=== PATIENT | female | born 1980 | race Caucasian/White ===

== ENCOUNTER → 2019-07-16 10:31 | Outpatient (BNVA) | payer BC, SELFPAY | PROVIDERS: Visit Provider Obstetrics & Gynecology | DX: N92.0 Excessive and frequent menstruation with regular cycle (principal) | CPT/HCPCS: 84443; 85027 ==

== ENCOUNTER 2020-07-29 10:49 | Emergency (ER) | payer SELFPAY ==
[2020-07-29 10:56] VITALS: BP 124/81; PULSE 74; RESP 16; TEMP 36.3; O2SAT 100; BMI 30.8
[2020-07-29 12:34] VITALS: BP 125/76; PULSE 64; RESP 16; O2SAT 97
--- NOTE | 2020-07-29 12:39 | XR_ITS ---
WS: [id number] XR chest 1V portable [id number] REASON FOR EXAM: CP FINDINGS: The heart and mediastinum are within normal limits. No active pulmonary parenchymal pleural disease. Bony thorax is intact. XR/XR chest 1V portable [id number] IMPRESSION: No acute chest abnormality.
--- NOTE | 2020-07-29 12:39 | ECG_ITS ---
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 Measurements Intervals [place] Rate: 60 P: 49 MT: 128 QRS: 50 QRSD: 88 T: 30 QT: 397 QTc: 399 Interpretive Statements SINUS RHYTHM No previous ECG available for comparison Electronically Signed On 07-29-2020 23:15:01 CDT by Torri Alexander M.D. [id number]
--- NOTE | 2020-07-29 12:40 | W.ED.CHESTPA ---
HPI - Chest Pain General: Chief Complaint: Chest Pain Stated Complaint: CP X 2 WKS, WORSE TODAY Time Seen by Provider: 07/29/20 12:36 History of Present Illness: HPI narrative: Patient complains about upper pain radiating right shoulder intermittently over the last 2 weeks. She said it started after he stopped her Lexapro. She did go back on her Lexapro couple days ago. Patient says she is a constant worrier has been her whole life. She denies any chest heaviness chest pressure denies any shortness of breath nausea vomiting diaphoresis. Does have some reflux at times. Has not taking agaa-zjr-sssazed medications. Besides ibuprofen. States that pain or discomfort seems to occur more with a deep breath. MD complaint: chest discomfort Timing of current episode: episodic Prior episodes: No Pain location: right chest Pain radiation: right shoulder Severity: mild Quality: sharp Exacerbating factors: inspiration and stress Associated symptoms: Reports no associated symptoms; Deny abdominal pain, dyspnea, fever(s), nausea or vomiting Review of Systems Const: Denies: fever(s), chills or body aches Eyes: Denies: change in vision or blurry vision ENMT: Denies: throat pain or nasal congestion Card: Reports: chest pain; Denies: dyspnea on exertion Resp: Denies: dyspnea, productive cough or non-productive cough GI: Denies: abdominal pain, nausea or vomiting Musc: Denies: extremity pain Skin/Breast: Denies: rash Neuro: Denies: headache(s) Psych: Denies: anxiety or depression Jose/Lymph: Denies: easy bruising PFS ED PFSH: Medical History (Updated 07/29/20 @ 14:47 by NATALIE Villatoro) Anxiety Surgical History History of kidney surgery (10/13/14) Laparoscopic (robotic) right kidney surgery. Performed at [facility] in [place]. Reports having possible ureteral obstruction and states had lower part of kidney and obstructed ureter removed and ureter reimplanted. Reports had stent for 3 weeks. History of tympanoplasty (~1983) Family History Family/Other Breast cancer Maternal aunt Hypertension paternal aunt and uncle Hyperlipidemia Multiple family members Grandmother , from ovarian cancer Breast cancer, Onset Age: 60 maternal Ovarian cancer maternal Mother , age 34 from breast cancer Breast cancer, Onset Age: 29 Hypertension Father Diabetes Hypertension Brother Hypertension Grandfather CAD (coronary artery disease) Paternal Social History (Updated 07/29/20 @ 11:16 by Elmer Belle RN) Smoking and tobacco status: current every day smoker cigarettes Packs smoked per day: 0.5 [ Other cigarette details: started about age 35 ] Alcohol intake: current Alcohol intake frequency: few times a week Physical Exam Const: COMMON NORMALS: no acute distress, average body habitus and patient oriented x3 HENMT: COMMON NORMALS: normocephalic HEAD & SCALP: normal to inspection and normocephalic FACE & SINUS: normal facial exam Eye: COMMON NORMALS: conjunctivae normal GENERAL EYE: appearance normal, both eyes and all related structures CONJUNCTIVA: Yes conjunctivae normal Neck/C-Spine: COMMON NORMALS: no JVD Chest: COMMONS NORMALS: normal inspection of the chest Resp: COMMON NORMALS: normal respiratory effort and clear to auscultation bilaterally AUSCULTATION: clear to auscultation bilaterally Cardio: COMMON NORMALS: no JVD, regular rate and regular rhythm RATE: regular rate RHYTHM: regular rhythm GI: COMMON NORMALS: Normal to inspection, nondistended, normoactive bowel sounds present Extremity: COMMON NORMALS: normal to inspection and full ROM Neuro: COMMON NORMALS: patient oriented x3 Course Vital Signs: Vital signs: Vital Signs Temperature 97.3 F L 07/29/20 10:56 Pulse Rate 76 07/29/20 14:49 Respiratory Rate 16 07/29/20 14:49 Blood Pressure 117/78 07/29/20 14:49 Pulse Oximetry 97 07/29/20 14:49 MDM - Chest Pain MDM Narrative: Medical decision making narrative: Patient felt better after injection. Labs all negative. EKG x-ray normal. Atypical chest pain patient follow-up family medical provider as necessary and will continue take Lexapro and talk to her provider about whether change letter started a new medication. Lab Data: Labs: Lab Results 07/29/20 07/29/20 07/29/20 Range/Units 12:50 12:50 12:50 WBC 7.3 (4.0-10.0) 10^3/ uL RBC 3.95 L (4.1-5.3) 10^6/u L Hgb 11.9 (11.5-15.3) g/dL Hct 37.1 (37.0-47.0) % MCV 93.9 (81-99) fL MCH 30.1 (28.0-34.0) pg MCHC 32.1 (30.0-36.0) g/dL RDW 14.4 (12.1-15.1) % Plt Count 297 (130-400) 10^3/c mm MPV 10.0 (7.4-10.4) fL Neut % (Auto) 68.6 % Lymph % (Auto) 19.5 % [place] % (Auto) 9.4 % Eos % (Auto) 1.8 % Baso % (Auto) 0.4 % Neut # (Auto) 4.99 (1.8-7.7) 10^3/u L Lymph # (Auto) 1.4 (0.8-4.8) 10^3/u L [place] # (Auto) 0.7 (0.2-0.9) 10^3/u L Eos # (Auto) 0.1 (0.0-0.8) 10^3/u L Baso # (Auto) 0.0 (0.0-0.1) 10^3/u L Nucleated RBC % (a uto) 0 % Nucleated RBCs # 0.0 /100WBC ESR 15 (0-15) mm/hr D-Dimer (0-0.59) ug/mIFE U Sodium 137 (136-145) mmol/L Potassium 3.9 (3.5-5.1) mmol/L Chloride 105 (98-107) mmol/L Carbon Dioxide 23 (22-29) mmol/L Anion Gap 12.9 (5-19) BUN 13 (6-20) mg/dL Creatinine 0.6 (0.5-0.9) mg/dL GFR Calculation 110.2 (90-130) mL/min Glucose 89 (65-115) mg/dL Calculated Osmolal ity 284 L (285-295) mOsm/k g Calcium 8.5 (8.5-10.5) mg/dL Total Bilirubin 0.2 (0.15-1.2) mg/dL AST 38 H (0-32) U/L ALT 41 H (0-33) U/L Alkaline Phosphata se 93 (35-105) IU/L Troponin T Gen 5 n g/L (0-10) ng/L Total Protein 7.0 (6.6-8.7) g/dL Albumin 3.9 (3.5-5.2) g/dL Globulin 3.1 (1.3-4.6) g/dL 07/29/20 07/29/20 Range/Units 12:50 14:20 WBC (4.0-10.0) 10^3/ uL RBC (4.1-5.3) 10^6/u L Hgb (11.5-15.3) g/dL Hct (37.0-47.0) % MCV (81-99) fL MCH (28.0-34.0) pg MCHC (30.0-36.0) g/dL RDW (12.1-15.1) % Plt Count (130-400) 10^3/c mm MPV (7.4-10.4) fL Neut % (Auto) % Lymph % (Auto) % [place] % (Auto) % Eos % (Auto) % Baso % (Auto) % Neut # (Auto) (1.8-7.7) 10^3/u L Lymph # (Auto) (0.8-4.8) 10^3/u L [place] # (Auto) (0.2-0.9) 10^3/u L Eos # (Auto) (0.0-0.8) 10^3/u L Baso # (Auto) (0.0-0.1) 10^3/u L Nucleated RBC % (a uto) % Nucleated RBCs # /100WBC ESR (0-15) mm/hr D-Dimer <= 0.27 (0-0.59) ug/mIFE U Sodium (136-145) mmol/L Potassium (3.5-5.1) mmol/L Chloride (98-107) mmol/L Carbon Dioxide (22-29) mmol/L Anion Gap (5-19) BUN (6-20) mg/dL Creatinine (0.5-0.9) mg/dL GFR Calculation (90-130) mL/min Glucose (65-115) mg/dL Calculated Osmolal ity (285-295) mOsm/k g Calcium (8.5-10.5) mg/dL Total Bilirubin (0.15-1.2) mg/dL AST (0-32) U/L ALT (0-33) U/L Alkaline Phosphata se (35-105) IU/L Troponin T Gen 5 n g/L 6 (0-10) ng/L Total Protein (6.6-8.7) g/dL Albumin (3.5-5.2) g/dL Globulin (1.3-4.6) g/dL Discharge Plan Discharge Patient Disposition: Home Clinical Impression: Atypical chest pain Condition: Stable Prescriptions: No Action escitalopram oxalate 10 mg tablet 10 mg PO DAILY RF: 0 Discharge Orders: Discharge ED (Routine); Ordered 07/29/20 Ordered By: Beni Ovalles Referrals: Princess Cerda FNP [Primary Care Provider] - Discharge Diet: Usual diet Discharge Activity: Resume usual activity Activity Restrictions/Additional Instructions: Continue on present medications follow-up your family medical provider if no significant improvement can return to ER if needed. Coding Level of Care Code ED Asset Protection Manager for Yadielg Fwd Exam Comprehensive
[2020-07-29 12:55] LABS: Basophils % 0.4 %; Eosinophils # 0.1 10^3/uL (0.0-0.8); Eosinophils % 1.8 %; Hematocrit 37.1 % (37.0-47.0); Hemoglobin 11.9 g/dL (11.5-15.3); Lymphocytes # 1.4 10^3/uL (0.8-4.8); Lymphocytes % 19.5 %; Mean Corpuscular HGB Conc 32.1 g/dL (30.0-36.0); Mean Corpuscular Hemoglobin 30.1 pg (28.0-34.0); Mean Corpuscular Volume 93.9 fL (81-99); Monocytes # 0.7 10^3/uL (0.2-0.9); Monocytes % 9.4 %; Neutrophils # 4.99 10^3/uL (1.8-7.7); Neutrophils % 68.6 %; Nucleated Red Blood Cells % 0 %; Platelet Count 297 10^3/cmm (130-400); Red Blood Count 3.95 10^6/uL (4.1-5.3); Red Cell Distribution Width 14.4 % (12.1-15.1); White Blood Count 7.3 10^3/uL (4.0-10.0)
[2020-07-29 13:17] LABS: Alanine Aminotransferase 41 U/L (0-33); Albumin Level 3.9 g/dL (3.5-5.2); Alkaline Phosphatase 93 IU/L (35-105); Anion Gap 12.9 (5-19); Aspartate Amino Transferase 38 U/L (0-32); Blood Urea Nitrogen 13 mg/dL (6-20); Calcium 8.5 mg/dL (8.5-10.5); Carbon Dioxide 23 mmol/L (22-29); Chloride 105 mmol/L (98-107); Globulin 3.1 g/dL (1.3-4.6); Glomerular Filtration Rate 110.2 mL/min (90-130); Glucose 89 mg/dL (65-115); Osmolality Calculated 284 mOsm/kg (285-295); Potassium 3.9 mmol/L (3.5-5.1); Sodium 137 mmol/L (136-145); Total Bilirubin 0.2 mg/dL (0.15-1.2)
[2020-07-29 13:38] LABS: Erythrocyte Sedimentation Rate 15 mm/hr (0-15)
[2020-07-29] MEDS: ketorolac 60 mg/2 mL INJ IM (13:50)
[2020-07-29 14:07] LABS: Troponin T (5th) Once 6 ng/L (0-10)
[2020-07-29 14:40] LABS: D Dimer <= 0.27 ug/mIFEU (0-0.59)
[2020-07-29 14:49] VITALS: BP 117/78; PULSE 76; RESP 16; O2SAT 97
== END 2020-07-29 14:54 | disposition home or self-care (01) ==
PROVIDERS: Emergency Provider Nurse Practitioner Family; PCP Nurse Practitioner Family
DX: R07.89 Other chest pain (principal); F17.210 Nicotine dependence, cigarettes, uncomplicated
CPT/HCPCS: 71045; 80053; 84484; 85025; 85378; 85651; 93005; 96372; 99283; J1885

== ENCOUNTER 2021-04-07 10:38 | Emergency (ER) | payer SELFPAY ==
[2021-04-07 10:51] VITALS: BP 115/76; PULSE 85; RESP 16; TEMP 36.9; O2SAT 97; BMI 28.7
--- NOTE | 2021-04-07 11:04 | XR_ITS ---
WS: [id number] PORTABLE CHEST HISTORY: dyspnea/cough COMPARISON: 07/29/2020 Lungs are clear and well expanded. No pleural effusion or pneumothorax. Cardiac size: Normal. Mediastinum/Aorta: Normal mediastinum. No osseous abnormality seen. XR/XR chest 1V portable [id number] IMPRESSION: Unremarkable portable chest.
--- NOTE | 2021-04-07 11:09 | W.ED.CHESTPA ---
HPI - Chest Pain General: Chief Complaint: Chest Pain Stated Complaint: SOB, CP, FATIGUE Time Seen by Provider: 04/07/21 10:43 History of Present Illness: HPI narrative: 41-year-old female presents emergency room with complaint of shortness of breath and cough. Chest heaviness at times. She test positive for Covid on 1123. She did symptoms for several days prior to that. Patient is not obese she has no known history of chronic respiratory illness no immune compromising diagnosis. MD complaint: chest heaviness Onset (ago): day(s) (2) Timing of current episode: episodic Onset: during exertion Severity: mild Quality: heaviness Relieving factors: rest Exacerbating factors: exertion Associated symptoms: Reports dyspnea; Deny abdominal pain, diaphoresis, fever(s), leg edema, nausea, palpitations, sense of impending doom, syncope or vomiting Treatment prior to arrival: none Review of Systems Const: Denies: fever(s) or diaphoresis ENMT: Denies: throat pain, ear or mastoid pain, nasal discharge or nasal congestion Card: Denies: palpitations or syncope Resp: Reports: dyspnea and non-productive cough GI: Denies: abdominal pain, nausea or vomiting : Denies: flank pain, difficulty voiding, dysuria, urinary frequency or urinary urgency Skin/Breast: Denies: rash or pruritus PFSH ED PFSH: Medical History (Updated 04/07/21 @ 12:09 by Victoriano Aguilar DO) Anxiety Surgical History History of kidney surgery (10/13/14) Laparoscopic (robotic) right kidney surgery. Performed at [facility] in [place]. Reports having possible ureteral obstruction and states had lower part of kidney and obstructed ureter removed and ureter reimplanted. Reports had stent for 3 weeks. History of tympanoplasty (~1983) Family History Family/Other Breast cancer Maternal aunt Hypertension paternal aunt and uncle Hyperlipidemia Multiple family members Grandmother , from ovarian cancer Breast cancer, Onset Age: 60 maternal Ovarian cancer maternal Mother , age 34 from breast cancer Breast cancer, Onset Age: 29 Hypertension Father Diabetes Hypertension Brother Hypertension Grandfather CAD (coronary artery disease) Paternal Social History Smoking and tobacco status: current every day smoker cigarettes Packs smoked per day: 0.5 [ Other cigarette details: started about age 35 ] Alcohol intake: current Alcohol intake frequency: few times a week Female Reproductive History: Date of last menstrual period: 03/06/21 Physical Exam Const: COMMON NORMALS: no acute distress GENERAL APPEARANCE: cooperative and comfortable ORIENTATION/CONSCIOUSNESS: Yes awake, Yes oriented to person, Yes oriented to place and Yes oriented to time HENMT: COMMON NORMALS: normocephalic, atraumatic and hearing grossly normal bilaterally HEAD & SCALP: normocephalic and atraumatic Neck/C-Spine: COMMON NORMALS: no JVD Lymph: LYMPHATIC: no lymphadenopathy noted and no lymphedema noted Resp: COMMON NORMALS: normal respiratory effort, No retractions, No use of accessory muscles and clear to auscultation bilaterally AUSCULTATION: clear to auscultation bilaterally Cardio: COMMON NORMALS: no JVD, regular rate, regular rhythm and No murmurs present (Cardio) RATE: regular rate RHYTHM: regular rhythm GI: COMMON NORMALS: Soft to palpation and No hepatosplenomegaly present AUSCULTATION: Yes normoactive bowel sounds PALPATION: Yes Soft to palpation, No Tenderness to palpation present (GI), No Guarding due to palpation present (GI) and Yes No hepatosplenomegaly present Extremity: COMMON NORMALS: normal to inspection, capillary refill normal, no clubbing, cyanosis or edema, no calf tenderness and no pedal edema Neuro: SENSORIUM/ORIENTATION: Yes oriented to person, Yes oriented to place and Yes oriented to time Skin: COMMON NORMALS: no rashes or lesions noted GENERAL SKIN EXAM: no rashes or lesions noted Course Vital Signs: Vital signs: Vital Signs Temperature 98.4 F 04/07/21 10:51 Pulse Rate 71 04/07/21 11:20 Respiratory Rate 16 04/07/21 11:20 Blood Pressure 112/79 04/07/21 11:20 Pulse Oximetry 97 04/07/21 11:20 MDM - Chest Pain MDM Narrative: Medical decision making narrative: Patient is indeed Covid positive but does not really meet requirements monoclonal antibodies at this time she is otherwise doing very well. She is well oxygenated her chest x-ray is good vital signs are all good. No further interventions at this point observe we will send her home with home O2 monitoring if has worsening return to the emergency room. Lab Data: Labs: Lab Results 04/07/21 04/07/21 11:18 11:18 WBC 3.8 10^3/uL L 10^ 3/uL (4.0-10.0) RBC 4.20 10^6/uL 10^6 /uL (4.1-5.3) Hgb 11.4 g/dL L g/dL (11.5-15.3) Hct 37.1 % % (37.0-47.0) MCV 88.3 fl fl (81-99) MCH 27.1 pg L pg (28.0-34.0) MCHC 30.7 g/dL g/dL (30.0-36.0) RDW 15.2 % H % (12.1-15.1) Plt Count 237 10^3/cmm 10^3 /cmm (130-400) MPV 10.6 fL H fL (7.4-10.4) Neut % (Auto) 58.6 % % Lymph % (Auto) 28.4 % % [place] % (Auto) 10.9 % % Eos % (Auto) 1.3 % % Baso % (Auto) 0.5 % % Neut # (Auto) 2.21 10^3/uL 10^3 /uL (1.8-7.7) Lymph # (Auto) 1.1 10^3/uL 10^3/ uL (0.8-4.8) [place] # (Auto) 0.4 10^3/uL 10^3/ uL (0.2-0.9) Eos # (Auto) 0.1 10^3/uL 10^3/ uL (0.0-0.8) Baso # (Auto) 0.0 10^3/uL 10^3/ uL (0.0-0.1) Nucleated RBC % (a uto) 0 % % Nucleated RBCs # 0.0 /100WBC /100W BC Sodium 136 mmol/L mmol/L (136-145) Potassium 4.1 mmol/L mmol/L (3.5-5.1) Chloride 105 mmol/L mmol/L (98-107) Carbon Dioxide 20 mmol/L L mmol/ L (22-29) Anion Gap 15.1 (5-19) BUN 16 mg/dL mg/dL (6-20) Creatinine 1.1 mg/dL H mg/dL (0.5-0.9) GFR Calculation 54.5 mL/min L mL/ min (90-130) Glucose 84 mg/dL mg/dL (65-115) Calculated Osmolal ity 282 mOsm/kg L mOs m/kg (285-295) Calcium 8.1 mg/dL L mg/dL (8.5-10.5) Total Bilirubin 0.2 mg/dL mg/dL (0.15-1.2) AST 46 U/L H U/L (0-32) ALT 78 U/L H U/L (0-33) Alkaline Phosphata se 59 IU/L IU/L (35-105) C-Reactive Protein 0.9 mg/L mg/L (0.0-4.9) Total Protein 6.6 g/dL g/dL (6.6-8.7) Albumin 3.8 g/dL g/dL (3.5-5.2) Globulin 2.8 g/dL g/dL (1.3-4.6) Discharge Plan Discharge Patient Disposition: Home Clinical Impression: COVID-19 Condition: Stable Prescriptions: No Action escitalopram oxalate 10 mg tablet 10 mg PO DAILY RF: 0 Discharge Orders: Discharge ED (Routine); Ordered 04/07/21 Ordered By: Victoriano Aguilar Referrals: Prashant,NATALIE Sánchez [Primary Care Provider] - Discharge Diet: Usual diet Discharge Activity: Increase activity as tolerated Patient Instructions: Opioid Safety Activity Restrictions/Additional Instructions: Monitor oxygen saturations at home. If you are less than 90% at rest return to the emergency room. Coding Level of Care Code ED Screen Vent Binder for Sarai Fwd Exam Comprehensive
[2021-04-07 11:20] VITALS: BP 112/79; PULSE 71; RESP 16; O2SAT 97
[2021-04-07 11:30] LABS: Basophils % 0.5 %; Eosinophils # 0.1 10^3/uL (0.0-0.8); Eosinophils % 1.3 %; Hematocrit 37.1 % (37.0-47.0); Hemoglobin 11.4 g/dL (11.5-15.3); Lymphocytes # 1.1 10^3/uL (0.8-4.8); Lymphocytes % 28.4 %; Mean Corpuscular HGB Conc 30.7 g/dL (30.0-36.0); Mean Corpuscular Hemoglobin 27.1 pg (28.0-34.0); Mean Corpuscular Volume 88.3 fl (81-99); Mean Platelet Volume 10.6 fL (7.4-10.4); Monocytes # 0.4 10^3/uL (0.2-0.9); Monocytes % 10.9 %; Neutrophils # 2.21 10^3/uL (1.8-7.7); Neutrophils % 58.6 %; Nucleated Red Blood Cells % 0 %; Platelet Count 237 10^3/cmm (130-400); Red Cell Distribution Width 15.2 % (12.1-15.1); White Blood Count 3.8 10^3/uL (4.0-10.0)
[2021-04-07 12:02] LABS: Alanine Aminotransferase 78 U/L (0-33); Albumin Level 3.8 g/dL (3.5-5.2); Alkaline Phosphatase 59 IU/L (35-105); Anion Gap 15.1 (5-19); Aspartate Amino Transferase 46 U/L (0-32); Blood Urea Nitrogen 16 mg/dL (6-20); C Reactive Protein 0.9 mg/L (0.0-4.9); Calcium 8.1 mg/dL (8.5-10.5); Carbon Dioxide 20 mmol/L (22-29); Chloride 105 mmol/L (98-107); Globulin 2.8 g/dL (1.3-4.6); Glomerular Filtration Rate 54.5 mL/min (90-130); Glucose 84 mg/dL (65-115); Osmolality Calculated 282 mOsm/kg (285-295); Potassium 4.1 mmol/L (3.5-5.1); Sodium 136 mmol/L (136-145); Total Bilirubin 0.2 mg/dL (0.15-1.2); Total Protein 6.6 g/dL (6.6-8.7)
[2021-04-07 13:31] VITALS: O2SAT 99
--- NOTE | 2021-04-07 15:15 | ECG_ITS ---
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
== END 2021-04-07 13:31 | disposition home or self-care (01) ==
PROVIDERS: Emergency Provider Family Medicine; PCP Nurse Practitioner Family
DX: U07.1 COVID-19 (principal); F17.210 Nicotine dependence, cigarettes, uncomplicated
CPT/HCPCS: 71045; 80053; 85025; 86140; 93005; 99283

== ENCOUNTER 2021-05-09 08:10 | Emergency (ER) | payer SELFPAY ==
[2021-05-09 08:18] VITALS: BP 110/70; PULSE 84; RESP 15; TEMP 36.9; O2SAT 97; BMI 27.9
--- NOTE | 2021-05-09 08:47 | XR_ITS ---
WS: [id number] Portable AP upright chest, 05/09/2021 Clinical Data: dyspnea/cough Comparison: Portable chest, 04/07/2021. Findings: No nodules, masses or effusions are seen. The heart is normal. The pulmonary vascularity is not increased. No pneumonia or pneumothorax is seen. XR/XR chest 1V portable [id number] Impression: Negative chest.
--- NOTE | 2021-05-09 08:51 | ED_ITS ---
HPI - SOB/Dyspnea General: Chief Complaint: Shortness of Breath/Dyspnea Stated Complaint: FATIGUE, SOB Time Seen by Provider: 05/09/21 08:25 History of Present Illness: HPI Narrative: 41-year-old female presents emergency room with chief complaint of shortness of breath sore throat sinus drainage some congestion. States she has had this for last several days been progressively worsening. She has history of having had COVID approximately a month ago MD elicited complaint: shortness of breath and cough Onset (ago): hour(s) Timing: constant Exacerbating factors: coughing Relieving factors: nothing Associated symptoms: Deny abdominal pain, chest congestion, chest pain, cough, diaphoresis, dizziness, extremity pain, fever(s), hemoptysis, lightheadedness, myalgias, nausea, orthopnea, palpitations, paresthesias, polydipsia, polyuria, rash, sense of impending doom, syncope or vomiting Treatment prior to arrival: none Review of Systems Const: Denies: fever(s) or diaphoresis ENMT: Denies: throat pain, ear or mastoid pain, nasal discharge or nasal congestion Card: Denies: chest pain, palpitations, lightheadedness, syncope or orthopnea Resp: Denies: hemoptysis or chest congestion GI: Denies: abdominal pain, nausea or vomiting : Denies: flank pain, difficulty voiding, dysuria, urinary frequency or urinary urgency Musc: Denies: extremity pain Skin/Breast: Denies: rash or pruritus Neuro: Denies: dizziness Endo: Denies: polyuria or polydipsia PFS ED PFSH: Medical History (Updated 05/09/21 @ 09:33 by Victoriano Aguilar DO) Anxiety Surgical History History of kidney surgery (10/13/14) Laparoscopic (robotic) right kidney surgery. Performed at [facility] in [place]. Reports having possible ureteral obstruction and states had lower part of kidney and obstructed ureter removed and ureter reimplanted. Reports had stent for 3 weeks. History of tympanoplasty (~1983) Family History Family/Other Breast cancer Maternal aunt Hypertension paternal aunt and uncle Hyperlipidemia Multiple family members Grandmother , from ovarian cancer Breast cancer, Onset Age: 60 maternal Ovarian cancer maternal Mother , age 34 from breast cancer Breast cancer, Onset Age: 29 Hypertension Father Diabetes Hypertension Brother Hypertension Grandfather CAD (coronary artery disease) Paternal Social History Smoking and tobacco status: current every day smoker cigarettes Packs smoked per day: 0.5 [ Other cigarette details: started about age 35 ] Alcohol intake: current Alcohol intake frequency: few times a week Female Reproductive History: Date of last menstrual period: 03/06/21 Physical Exam Const: COMMON NORMALS: no acute distress GENERAL APPEARANCE: cooperative and comfortable ORIENTATION/CONSCIOUSNESS: Yes awake, Yes oriented to person, Yes oriented to place and Yes oriented to time HENMT: COMMON NORMALS: normocephalic, atraumatic and hearing grossly normal bilaterally HEAD & SCALP: normocephalic and atraumatic Neck/C-Spine: COMMON NORMALS: no JVD Resp: COMMON NORMALS: normal respiratory effort, No retractions, No use of accessory muscles and clear to auscultation bilaterally AUSCULTATION: clear to auscultation bilaterally Cardio: COMMON NORMALS: no JVD, regular rate, regular rhythm and No murmurs present (Cardio) RATE: regular rate RHYTHM: regular rhythm GI: COMMON NORMALS: Soft to palpation and No hepatosplenomegaly present AUSCULTATION: Yes normoactive bowel sounds PALPATION: Yes Soft to palpation, No Tenderness to palpation present (GI), No Guarding due to palpation present (GI) and Yes No hepatosplenomegaly present Extremity: COMMON NORMALS: normal to inspection, capillary refill normal, no clubbing, cyanosis or edema, no calf tenderness and no pedal edema Neuro: SENSORIUM/ORIENTATION: Yes oriented to person, Yes oriented to place and Yes oriented to time Skin: COMMON NORMALS: no rashes or lesions noted GENERAL SKIN EXAM: no rashes or lesions noted Course Vital Signs: Vital signs: Vital Signs Temperature 98.5 F 05/09/21 08:18 Pulse Rate 84 05/09/21 08:18 Respiratory Rate 15 05/09/21 08:18 Blood Pressure 110/70 05/09/21 08:18 Pulse Oximetry 97 05/09/21 08:18 MDM - SOB/Dyspnea MDM Narrative: Medical decision making narrative: Chest x-ray unremarkable. No clinical signs or symptoms of a pulmonary emboli at this time observe if has any worsening or change symptoms return to primary care return to the emergency room. If her symptoms persist she may need to see her primary care and consider treatment for postinfectious bronchospasm for a number of months. Discharge Plan Discharge Patient Disposition: Home Clinical Impression: Post-COVID chronic cough Condition: Stable Prescriptions: No Action escitalopram oxalate 10 mg tablet 10 mg PO DAILY RF: 0 Discharge Orders: Discharge ED (Routine); Ordered 05/09/21 Ordered By: Victoriano Aguilar Referrals: Princess Cerda FNP [Primary Care Provider] - Discharge Diet: Usual diet Discharge Activity: Resume usual activity Patient Instructions: Opioid Safety Activity Restrictions/Additional Instructions: Symptoms persist follow-up with primary care provider return to the emergency room. Coding Level of Care Code ED Braille Typist for Sarai Holbrook Exam Comprehensive
== END 2021-05-09 09:47 | disposition home or self-care (01) ==
PROVIDERS: Emergency Provider Family Medicine; PCP Nurse Practitioner Family
DX: R05.3 Chronic cough (principal); U09.9 Post COVID-19 condition, unspecified; F17.210 Nicotine dependence, cigarettes, uncomplicated
CPT/HCPCS: 71045; 99282

== ENCOUNTER 2021-11-30 10:25 | Emergency (ER) | payer SELFPAY ==
[2021-11-30 10:33] VITALS: BP 124/82; PULSE 85; RESP 15; TEMP 36.7; O2SAT 100; BMI 27.3
--- NOTE | 2021-11-30 10:46 | ECG_ITS ---
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 Measurements Intervals [place] Rate: 91 P: 66 HI: 104 QRS: 68 QRSD: 87 T: 43 QT: 343 QTc: 423 Interpretive Statements SINUS RHYTHM WITH SHORT HI INTERVAL Compared to ECG 04/07/2021 10:49:46 No significant changes Electronically Signed On 11-30-2021 21:15:19 CDT by Torri Alexander M.D. [email or web address] medical specialty hospital - boardman, incGenKyoTex/store/OM/[id number]
--- NOTE | 2021-11-30 13:30 | XRR_ITS ---
PROCEDURE INFORMATION: Exam: XR Chest Exam date and time: 11/30/2021 1:47 PM Age: 41 years old Clinical indication: Pain; Shortness of breath; Angina pectoris; Additional info: Chest pain TECHNIQUE: Imaging protocol: Radiologic exam of the chest. Views: 1 view. COMPARISON: CR XR chest 1V portable [id number] 05/09/2021 8:55 AM FINDINGS: Lungs: Unremarkable. No consolidation. Pleural spaces: Unremarkable. No pleural effusion. No pneumothorax. Heart/Mediastinum: Unremarkable. No cardiomegaly. Bones/joints: Unremarkable. No changes seen since prior. Incidentally noted are metallic nipple rings XR/XR chest 1V portable [id number] IMPRESSION: No acute findings.
--- NOTE | 2021-11-30 13:30 | ECG_ITS ---
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 Measurements Intervals [place] Rate: 74 P: 54 SD: 134 QRS: 52 QRSD: 88 T: 36 QT: 348 QTc: 388 Interpretive Statements SINUS RHYTHM Compared to ECG 11/30/2021 10:44:05 Short SD interval no longer present Electronically Signed On 11-30-2021 21:16:49 CDT by Torri Alexander M.D. [email or web address] [email or web address] [email or web address] hospitalLGC [email or web address]/store/[id number]
--- NOTE | 2021-11-30 15:14 | ED_ITS ---
Documented by User: Victoriano Aguilar DO 12/01/21 10:26 HPI - Chest Pain General: Chief Complaint: Chest Pain Stated Complaint: Chest pains, Sob Time Seen by Provider: 11/30/21 15:09 Source: patient Mode of arrival: ambulatory Limitations: no limitations History of Present Illness: 41-year-old female presents emergency room complaining of chest pain that began 30 minutes after she had gone to work. States pain radiating to her left arm she got lightheaded and dizzy with that. She denies any does seem to exacerbate or relieve the pain. She has had a couple episodes similar in the past has not had any further evaluation for it. She had COVID last March and had an episode of atypical chest pain prior to that and then another after that for which she was seen evaluated in the emergency room. No known history of coronary disease she is not diabetic nor does she smoke. MD complaint: chest pain Onset (ago): minute(s) Timing of current episode: episodic Prior episodes: Yes Onset: during rest Pain location: left chest Pain radiation: left arm Severity: mild Quality: aching and heaviness Relieving factors: nothing Exacerbating factors: nothing Associated symptoms: Deny abdominal pain, diaphoresis, dyspnea, fever(s), leg ed kwasi, nausea, palpitations, sense of impending doom, syncope or vomiting Treatment prior to arrival: none Review of Systems Const: Denies: fever(s), chills, fatigue, malaise or diaphoresis ENMT: Denies: throat pain, ear or mastoid pain, nasal discharge or nasal congestion Card: Reports: chest pain; Denies: palpitations, irregular heart rhythm, edema or syncope Resp: Denies: dyspnea or wheezing GI: Denies: abdominal pain, nausea or vomiting : Denies: flank pain, difficulty voiding, dysuria, urinary frequency or urinary urgency Skin/Breast: Denies: rash or pruritus PFS ED PFSH: Medical History (Updated 12/08/21 @ 00:01 by ) Anxiety Surgical History History of kidney surgery (10/13/14) Laparoscopic (robotic) right kidney surgery. Performed at [facility] in [place]. Reports having possible ureteral obstruction and states had lower part of kidney and obstructed ureter removed and ureter reimplanted. Reports had stent for 3 weeks. History of tympanoplasty (~1983) Family History Family/Other Breast cancer Maternal aunt Hypertension paternal aunt and uncle Hyperlipidemia Multiple family members Grandmother , from ovarian cancer Breast cancer, Onset Age: 60 maternal Ovarian cancer maternal Mother , age 34 from breast cancer Breast cancer, Onset Age: 29 Hypertension Father Diabetes Hypertension Brother Hypertension Grandfather CAD (coronary artery disease) Paternal Social History Smoking and tobacco status: current every day smoker cigarettes Packs smoked per day: 0.5 [ Other cigarette details: started about age 35] Alcohol intake: current Alcohol intake frequency: few times a week Female Reproductive History: Date of last menstrual period: 03/06/21 Physical Exam Const: GENERAL APPEARANCE: cooperative and comfortable ORIENTATION/CONSCIOUSNESS: Yes awake, Yes oriented to person, Yes oriented to place and Yes oriented to time HENMT: COMMON NORMALS: normocephalic, atraumatic and hearing grossly normal bilaterally HEAD & SCALP: normocephalic and atraumatic Neck/C-Spine: COMMON NORMALS: no JVD Resp: COMMON NORMALS: normal respiratory effort, No retractions, No use of accessory muscles and clear to auscultation bilaterally AUSCULTATION: clear to auscultation bilaterally Cardio: COMMON NORMALS: no JVD, regular rate, regular rhythm and No murmurs present (Cardio) RATE: regular rate RHYTHM: regular rhythm GI: COMMON NORMALS: Soft to palpation and No hepatosplenomegaly present AUSCULTATION: Yes normoactive bowel sounds PALPATION: Yes Soft to palpation, No Tenderness to palpation present (GI), No Guarding due to palpation present (GI) and Yes No hepatosplenomegaly present Extremity: COMMON NORMALS: normal to inspection, capillary refill normal, no clubbing, cyanosis or edema, no calf tenderness and no pedal edema Neuro: SENSORIUM/ORIENTATION: Yes oriented to person, Yes oriented to place and Yes oriented to time Skin: COMMON NORMALS: no rashes or lesions noted GENERAL SKIN EXAM: no rashes or lesions noted Course Vital Signs: Vital signs: Vital Signs Temperature 98.1 F 11/30/21 10:33 Pulse Rate 81 11/30/21 18:22 Respiratory Rate 23 H 11/30/21 18:22 Blood Pressure 127/82 11/30/21 18:22 Pulse Oximetry 98 11/30/21 18:22 Oxygen Delivery Me thod 11/30/21 18:22 MDM - Chest Pain Medical Decision Making Care signed out to Dr. Pandey at change of shift. See final notes for diagnosis and disposition. Medical Records I reviewed the patient's medical records. Lab Data I reviewed the patient's lab results. : 11/30/21 14:44 11/30/21 14:44 Radiology Impressions Chest X-Ray 11/30/21 13:30 IMPRESSION: No acute findings. Laboratory Results WBC 8.0 10^3/uL (4.0-10.0) 11/30/21 14:44 RBC 4.57 10^6/uL (4.1-5.3) 11/30/21 14:44 Hgb 10.7 g/dL (11.5-15.3) L 11/30/21 14:44 Hct 37.1 % (37.0-47.0) 11/30/21 14:44 MCV 81.2 fl (81-99) 11/30/21 14:44 MCH 23.4 pg (28.0-34.0) L 11/30/21 14:44 MCHC 28.8 g/dL (30.0-36.0) L 11/30/21 14:44 RDW 17.4 % (12.1-15.1) H 11/30/21 14:44 Plt Count 323 10^3/cmm (130-400) 11/30/21 14:44 MPV 10.2 fL (7.4-10.4) 11/30/21 14:44 Neut % (Auto) 72.4 % 11/30/21 14:44 Lymph % (Auto) 18.8 % 11/30/21 14:44 Coleman % (Auto) 7.0 % 11/30/21 14:44 Eos % (Auto) 0.9 % 11/30/21 14:44 Baso % (Auto) 0.7 % 11/30/21 14:44 Neut # (Auto) 5.81 10^3/uL (1.8-7.7) 11/30/21 14:44 Lymph # (Auto) 1.5 10^3/uL (0.8-4.8) 11/30/21 14:44 Coleman # (Auto) 0.6 10^3/uL (0.2-0.9) 11/30/21 14:44 Eos # (Auto) 0.1 10^3/uL (0.0-0.8) 11/30/21 14:44 Baso # (Auto) 0.1 10^3/uL (0.0-0.1) 11/30/21 14:44 Nucleated RBC % (auto) 0 % 11/30/21 14:44 Nucleated RBCs # 0.0 /100WBC 11/30/21 14:44 Sodium 138 mmol/L (136-145) 11/30/21 14:44 Potassium 3.9 mmol/L (3.5-5.1) 11/30/21 14:44 Chloride 103 mmol/L (98-107) 11/30/21 14:44 Carbon Dioxide 23 mmol/L (22-29) 11/30/21 14:44 Anion Gap 15.9 (5-19) 11/30/21 14:44 BUN 15 mg/dL (6-20) 11/30/21 14:44 Creatinine 0.6 mg/dL (0.5-0.9) 11/30/21 14:44 GFR Calculation 109.6 mL/min (90-130) 11/30/21 14:44 Glucose 93 mg/dL (65-115) 11/30/21 14:44 Calculated Osmolality 287 mOsm/kg (285-295) 11/30/21 14:44 Calcium 9.3 mg/dL (8.5-10.5) 11/30/21 14:44 Troponin T Baseline 6 ng/L (0-10) 11/30/21 14:44 Troponin T 120 Minute 6.00 ng/L (0-10) 11/30/21 16:52 Delta Troponin T 0 ABS# (0-10) 11/30/21 16:52 Discharge Plan Discharge Patient Disposition: Home Clinical Impression: Atypical chest pain Condition: Stable Prescriptions: New aspirin 81 mg tablet,delayed release (DR/EC) 81 mg PO DAILY Qty: 30 0RF No Action Advil 200 mg Tablet 200 mg PO Q6H PRN (Reason: Pain) Tylenol 325 mg Capsule 325 mg PO QID PRN (Reason: Pain) Discharge Orders: Discharge ED (Routine); Ordered 11/30/21 Ordered By: Raghu Pandey Referrals: Princess Cerda FNP [Primary Care Provider] - Discharge Diet: Usual diet Discharge Activity: Increase activity as tolerated Patient Instructions: Opioid Safety Activity Restrictions/Additional Instructions: salary manager will make arrangements for her to follow-up with a Lexiscan sestamibi stress test as an outpatient. Continue take aspirin daily until this is completed and you are advised by your physician you may stop. Return if you have further symptoms. Sign Out Sign Out Data: Patient Sign Out occurred on 11/30/21 at 18:21. Patient's care was discussed, and care was transferred from to Raghu Pandey MD. Coding Level of Care Code ED Popcorn Vendor for Chg Fwd Exam Comprehensive Documented by User: Raghu Pandey MD 12/12/21 20:52 HPI - Chest Pain General: Chief Complaint: Chest Pain Stated Complaint: Chest pains, Sob Time Seen by Provider: 11/30/21 15:09 [facility] ED PFSH: Medical History (Updated 12/08/21 @ 00:01 by ) Anxiety Surgical History History of kidney surgery (10/13/14) Laparoscopic (robotic) right kidney surgery. Performed at [facility] in [place]. Reports having possible ureteral obstruction and states had lower part of kidney and obstructed ureter removed and ureter reimplanted. Reports had stent for 3 weeks. History of tympanoplasty (~1983) Family History Family/Other Breast cancer Maternal aunt Hypertension paternal aunt and uncle Hyperlipidemia Multiple family members Grandmother , from ovarian cancer Breast cancer, Onset Age: 60 maternal Ovarian cancer maternal Mother , age 34 from breast cancer Breast cancer, Onset Age: 29 Hypertension Father Diabetes Hypertension Brother Hypertension Grandfather CAD (coronary artery disease) Paternal Social History Smoking and tobacco status: current every day smoker cigarettes Packs smoked per day: 0.5 [ Other cigarette details: started about age 35] Alcohol intake: current Alcohol intake frequency: few times a week Course Vital Signs: Vital signs: Vital Signs Temperature 98.1 F 11/30/21 10:33 Pulse Rate 81 11/30/21 18:22 Respiratory Rate 23 H 11/30/21 18:22 Blood Pressure 127/82 11/30/21 18:22 Pulse Oximetry 98 11/30/21 18:22 Oxygen Delivery Me thod 11/30/21 18:22 MDM - Chest Pain Medical Decision Making Care signed out to Dr. Pandey at change of shift. See final notes for diagnosis and disposition. Patient care handoff received from Dr. Aguilar pending completion of ED evaluation. No leukocytosis, normocytic anemia. No acute electrolyte or metabolic derangement. Repeat troponin and initial troponin negative. Chest x- ray without acute consolidation or pneumothorax. Patient satisfactory for outpatient management. Discussed results of ED evaluation including return cautions. Patient verbalized understanding and felt safe for discharge. Raghu Pandey MD Emergency Medicine Lab Data : 11/30/21 14:44 11/30/21 14:44 Radiology Impressions Chest X-Ray 11/30/21 13:30 IMPRESSION: No acute findings. Laboratory Results WBC 8.0 10^3/uL (4.0-10.0) 11/30/21 14:44 RBC 4.57 10^6/uL (4.1-5.3) 11/30/21 14:44 Hgb 10.7 g/dL (11.5-15.3) L 11/30/21 14:44 Hct 37.1 % (37.0-47.0) 11/30/21 14:44 MCV 81.2 fl (81-99) 11/30/21 14:44 MCH 23.4 pg (28.0-34.0) L 11/30/21 14:44 MCHC 28.8 g/dL (30.0-36.0) L 11/30/21 14:44 RDW 17.4 % (12.1-15.1) H 11/30/21 14:44 Plt Count 323 10^3/cmm (130-400) 11/30/21 14:44 MPV 10.2 fL (7.4-10.4) 11/30/21 14:44 Neut % (Auto) 72.4 % 11/30/21 14:44 Lymph % (Auto) 18.8 % 11/30/21 14:44 Coleman % (Auto) 7.0 % 11/30/21 14:44 Eos % (Auto) 0.9 % 11/30/21 14:44 Baso % (Auto) 0.7 % 11/30/21 14:44 Neut # (Auto) 5.81 10^3/uL (1.8-7.7) 11/30/21 14:44 Lymph # (Auto) 1.5 10^3/uL (0.8-4.8) 11/30/21 14:44 Coleman # (Auto) 0.6 10^3/uL (0.2-0.9) 11/30/21 14:44 Eos # (Auto) 0.1 10^3/uL (0.0-0.8) 11/30/21 14:44 Baso # (Auto) 0.1 10^3/uL (0.0-0.1) 11/30/21 14:44 Nucleated RBC % (auto) 0 % 11/30/21 14:44 Nucleated RBCs # 0.0 /100WBC 11/30/21 14:44 Sodium 138 mmol/L (136-145) 11/30/21 14:44 Potassium 3.9 mmol/L (3.5-5.1) 11/30/21 14:44 Chloride 103 mmol/L (98-107) 11/30/21 14:44 Carbon Dioxide 23 mmol/L (22-29) 11/30/21 14:44 Anion Gap 15.9 (5-19) 11/30/21 14:44 BUN 15 mg/dL (6-20) 11/30/21 14:44 Creatinine 0.6 mg/dL (0.5-0.9) 11/30/21 14:44 GFR Calculation 109.6 mL/min (90-130) 11/30/21 14:44 Glucose 93 mg/dL (65-115) 11/30/21 14:44 Calculated Osmolality 287 mOsm/kg (285-295) 11/30/21 14:44 Calcium 9.3 mg/dL (8.5-10.5) 11/30/21 14:44 Troponin T Baseline 6 ng/L (0-10) 11/30/21 14:44 Troponin T 120 Minute 6.00 ng/L (0-10) 11/30/21 16:52 Delta Troponin T 0 ABS# (0-10) 11/30/21 16:52 Discharge Plan Discharge Patient Disposition: Home Clinical Impression: Atypical chest pain Condition: Stable Prescriptions: New aspirin 81 mg tablet,delayed release (DR/EC) 81 mg PO DAILY Qty: 30 0RF No Action Advil 200 mg Tablet 200 mg PO Q6H PRN (Reason: Pain) Tylenol 325 mg Capsule 325 mg PO QID PRN (Reason: Pain) Discharge Orders: Discharge ED (Routine); Ordered 11/30/21 Ordered By: Raghu Pandey Referrals: Cerda,Princess, SILK SCREEN OPERATOR [Primary Care Provider] - Discharge Diet: Usual diet Discharge Activity: Increase activity as tolerated Patient Instructions: Opioid Safety Activity Restrictions/Additional Instructions: salary manager will make arrangements for her to follow-up with a Lexiscan sestamibi stress test as an outpatient. Continue take aspirin daily until this is completed and you are advised by your physician you may stop. Return if you have further symptoms. Sign Out Sign Out Data: Patient Sign Out occurred on 11/30/21 at 18:21. Patient's care was discussed, and care was transferred from to Raghu Pandey MD. Coding Level of Care Code ED Popcorn Vendor for Yadielg Fwd Exam Comprehensive
[2021-11-30 15:18] LABS: Troponin(5th) Baseline 6 ng/L (0-10)
[2021-11-30 15:19] LABS: Anion Gap 15.9 (5-19); Blood Urea Nitrogen 15 mg/dL (6-20); Calcium 9.3 mg/dL (8.5-10.5); Carbon Dioxide 23 mmol/L (22-29); Chloride 103 mmol/L (98-107); Glomerular Filtration Rate 109.6 mL/min (90-130); Glucose 93 mg/dL (65-115); Osmolality Calculated 287 mOsm/kg (285-295); Potassium 3.9 mmol/L (3.5-5.1); Sodium 138 mmol/L (136-145)
[2021-11-30 15:30] LABS: Basophils # 0.1 10^3/uL (0.0-0.1); Basophils % 0.7 %; Eosinophils # 0.1 10^3/uL (0.0-0.8); Eosinophils % 0.9 %; Hematocrit 37.1 % (37.0-47.0); Hemoglobin 10.7 g/dL (11.5-15.3); Lymphocytes # 1.5 10^3/uL (0.8-4.8); Lymphocytes % 18.8 %; Mean Corpuscular HGB Conc 28.8 g/dL (30.0-36.0); Mean Corpuscular Hemoglobin 23.4 pg (28.0-34.0); Mean Corpuscular Volume 81.2 fl (81-99); Mean Platelet Volume 10.2 fL (7.4-10.4); Monocytes # 0.6 10^3/uL (0.2-0.9); Neutrophils # 5.81 10^3/uL (1.8-7.7); Neutrophils % 72.4 %; Nucleated Red Blood Cells % 0 %; Platelet Count 323 10^3/cmm (130-400); Red Blood Count 4.57 10^6/uL (4.1-5.3); Red Cell Distribution Width 17.4 % (12.1-15.1)
--- NOTE | 2021-11-30 15:30 | ECG_ITS ---
[facility] Test Date: 2021-11-30 Pat Name: Dakota Ugalde Department: Room: Gender: Female Supervisor Dog License Officer: : 1980 Requested By: Viraj Nieves Order Number: [id number] Reading MD: Sabino Valero M.D. Measurements Intervals [place] Rate: 79 P: 40 ND: 123 QRS: 43 QRSD: 87 T: 28 QT: 352 QTc: 405 Interpretive Statements SINUS RHYTHM Compared to ECG 11/30/2021 16:49:12 No significant changes Electronically Signed On 12-01-2021 20:49:49 CDT by Sabino Valero M.D. [id number]
[2021-11-30 15:51] VITALS: BP 134/82; PULSE 78; RESP 28; O2SAT 99
[2021-11-30 17:06] VITALS: BP 126/80; PULSE 72; RESP 18; O2SAT 98
[2021-11-30 18:22] VITALS: BP 127/82; PULSE 81; RESP 23; O2SAT 98
[2021-11-30 18:26] LABS: Troponin 5 2HR Delta 0 ABS# (0-10)
--- NOTE | 2021-11-30 19:30 | ECG_ITS ---
[facility] Test Date: 2021-11-30 Pat Name: Dakota Ugalde Department: Room: Gender: Female Catalyst Concentration Operator: : 1980 Requested By: Viraj Nieves Order Number: [id number] August MD: Sabino Valero M.D. Measurements Intervals [place] Rate: 77 P: 55 [place]: 133 QRS: 49 QRSD: 90 T: 42 QT: 356 QTc: 403 Interpretive Statements SINUS RHYTHM Compared to ECG 11/30/2021 15:35:42 No significant changes Electronically Signed On 12-01-2021 20:50:22 CDT by Sabino Valero M.D. [email or web address] adult care unitDidi-Dacheprotestant hospitalLuminator Technology Group/store/OM/[id number]
--- NOTE | 2021-12-01 09:30 | DCPLANNER ---
Addendum entered by Jennifer Barnett 02/02/22 10:52: manager banquet was told from centralized scheduling that patients insurance denied the stress test. Original Note: manager banquet had message to schedule an outpatient stress test for patient. manager banquet faxed signed order to centralized scheduling, who will call patient with appointment information.
== END 2021-11-30 18:47 | disposition home or self-care (01) ==
PROVIDERS: Emergency Medicine; Emergency Provider Emergency Medicine; PCP Nurse Practitioner Family
DX: R07.89 Other chest pain (principal); F17.210 Nicotine dependence, cigarettes, uncomplicated
CPT/HCPCS: 36415; 71045; 80048; 84484; 85025; 93005; 99285

== ENCOUNTER → 2022-08-02 11:08 | Outpatient (BNVA) | payer SELFPAY | PROVIDERS: PCP Nurse Practitioner Family; Visit Provider Nurse Practitioner | DX: R39.9 Unspecified symptoms and signs involving the genitourinary system (principal); N12 Tubulo-interstitial nephritis, not specified as acute or chronic | CPT/HCPCS: 81000; 87086 ==

== ENCOUNTER 2023-04-20 15:44 | Emergency (ER) | payer MEDICAID, SELFPAY ==
[2023-04-20 15:46] VITALS: BP 118/77; PULSE 98; RESP 16; TEMP 36.8; O2SAT 100; BMI 28.3
--- NOTE | 2023-04-20 15:48 | ED_ITS ---
HPI - Abdominal Pain 2 General: Chief Complaint: Abdominal Pain Stated Complaint: right abd pain Time Seen by Provider: 04/20/23 15:48 History of Present Illness: 43-year-old female presents emergency de partment complaints of right flank abdominal pain. She states that started this morning and then became constant. She denies known injury or trauma. She states that it is a throbbing type pain that is now changed from intermittent to constant pain. She denies nausea, vomiting, diarrhea, fevers chills or night sweats. She states she does have a history of recurrent urinary tract infections as well as kidney stones. Review of Systems 2 General: Reports: 10 or more systems reviewed and unremarkable except in HPI and below GI: Reports: abdominal pain PFSH ED 2 PFSH: Medical History (Updated 04/20/23 @ 17:26 by Jose Jose MD) Anxiety Surgical History History of tympanoplasty (~1983) History of kidney surgery (10/13/14) Laparoscopic (robotic) right kidney surgery. Performed at [facility] in [place]. Reports having possible ureteral obstruction and states had lower part of kidney and obstructed ureter removed and ureter reimplanted. Reports had stent for 3 weeks. Family History Family/Other Breast cancer Maternal aunt Hypertension paternal aunt and uncle Hyperlipidemia Multiple family members Grandmother , from ovarian cancer Breast cancer, Onset Age: 60 maternal Ovarian cancer maternal Mother , age 34 from breast cancer Breast cancer, Onset Age: 29 Hypertension Father Diabetes Hypertension Brother Hypertension Grandfather CAD (coronary artery disease) Paternal Social History Smoking and tobacco/nicotine status: current every day tobacco/nicotine user cigarettes Packs smoked per day: 0.5 [ Other cigarette details: started about age 35] Alcohol intake: current Alcohol intake frequency: few times a week Substance/Drug Use: never Physical Exam 2 Narrative: EXAM NARRATIVE: Constitutional: the patient appears well nourished and with normal development. Vital signs reviewed as documented. HENMT: Normocephalic, atraumatic. Extermal ears with normal appearance without drainage. Nose without drainage, normal appearance. Mucus membranes moist. Neck is supple, No jugular venous distension, trachea is midline, no appreciable carotid bruits. No lymphadenopathy. No meningeal signs. Flexion, extension and lateral rotation is without pain. Eyes: Pupils are equal, round, reactive to light and accommodation. No scleral icterus. Extra-ocular movement are intact. Thorax is symmetrical and with equal rise and fall with respirations. Resp: Lungs are clear to auscultation. No wheezes, rales, crackles or ronchi at present. Cardio: Regular rate and rhythm. Positive S1, S2. No appreciable murmurs, rubs or gallops. GI: Abdominal exam reveals normal bowel sounds to all quadrants. No organomegaly. No obvious palpable masses noted. No hepatomegally appreciated. Soft, nontender to palpation. Extremity: Extremities are non-edematous and both femoral and pedal pulses are 2+ and equal bilaterally. Moves all extremities well, sensation in all extremities. Neuro: Alert and oriented x4, person, place, time and situation. Cranial nerves II through XII are grossly intact, there is no focal neurological deficits that I can appreciate at present. Motor strength in the upper and lower extremities are equal and bilateral 5/5. Psych: Cooperative, calm, normal thought process, appropriate judgment. Skin: No lesions, rashes. No gross abnormalities noted. Back: Symmetrical, no obvious deformity, No CVA tenderness Course 2 Vital Signs: Vital signs: Vital Signs Temperature 98.2 F 04/20/23 15:46 Pulse Rate 98 04/20/23 15:46 Respiratory Rate 16 04/20/23 15:46 Blood Pressure 118/77 04/20/23 15:46 Pulse Oximetry 100 04/20/23 15:46 Oxygen Delivery Me thod Room Air 04/20/23 15:46 MDM - Abdominal Pain Medical Decision Making Physical exam completed and documented, I will obtain laboratory evaluation to include a CBC, CMP, lipase, urinalysis, and a CT scan of the patient's abdomen pelvis to evaluate for possible differential diagnosis of bowel obstruction, incarcerated hernia, abdominal wall strain, abdominal wall hematoma, enteritis, constipation. I will provide the patient IV access and IV fluid as well as a CT scan abdomen pelvis with contrast for evaluation for possible colitis, acute appendicitis, diverticulitis. Medical Records I reviewed the patient's medical records. Lab Data I reviewed the patient's lab results. 04/20/23 15:56 04/20/23 15:56 Labs/Radiology: Radiology Impressions Abdomen/Pelvis CT 04/20/23 16:46 IMPRESSION: 1. Prominent fluid in the small bowel without dilation may reflect an enteritis. 2. Fluid in the uterine cavity, likely related to menstrual status. 3. Hepatic steatosis. 4. Diverticulosis without diverticulitis. Laboratory Results WBC 10.28 10^3/uL (3.29-11.43) 04/20/23 15:56 RBC 3.94 10^6/uL (3.85-5.65) 04/20/23 15:56 Hgb 10.10 g/dL (11.27-16.99) L 04/20/23 15:56 Hct 34.0 % (36-47) L 04/20/23 15:56 MCV 86.3 fl (85-98) 04/20/23 15:56 MCH 25.6 pg (27-33) L 04/20/23 15:56 MCHC 29.7 g/dL (30-55) L 04/20/23 15:56 RDW 15.4 % (12.1-15.1) H 04/20/23 15:56 Plt Count 295 10^3/cmm (157-399) 04/20/23 15:56 MPV 9.9 fL (7.4-10.4) 04/20/23 15:56 Neut % (Auto) 78.7 % 04/20/23 15:56 Lymph % (Auto) 14.4 % 04/20/23 15:56 [place] % (Auto) 5.0 % 04/20/23 15:56 Eos % (Auto) 1.1 % 04/20/23 15:56 Baso % (Auto) 0.5 % 04/20/23 15:56 Neut # (Auto) 8.10 10^3/uL (1.8-7.7) H 04/20/23 15:56 Lymph # (Auto) 1.5 10^3/uL (0.8-4.8) 04/20/23 15:56 [place] # (Auto) 0.5 10^3/uL (0.2-0.9) 04/20/23 15:56 Eos # (Auto) 0.1 10^3/uL (0.0-0.8) 04/20/23 15:56 Baso # (Auto) 0.1 10^3/uL (0.0-0.1) 04/20/23 15:56 Nucleated RBC % (auto) 0 % 04/20/23 15:56 Nucleated RBCs # 0.0 /100WBC 04/20/23 15:56 Sodium 140 mmol/L (136-145) 04/20/23 15:56 Potassium 3.8 mmol/L (3.5-5.1) 04/20/23 15:56 Chloride 105 mmol/L (98-107) 04/20/23 15:56 Carbon Dioxide 22 mmol/L (22-29) 04/20/23 15:56 Anion Gap 16.8 (5-19) 04/20/23 15:56 BUN 15 mg/dL (6-20) 04/20/23 15:56 Creatinine 0.7 mg/dL (0.5-0.9) 04/20/23 15:56 GFR Calculation 90.9 mL/min (90-130) 04/20/23 15:56 Glucose 130 mg/dL (65-115) H 04/20/23 15:56 Calculated Osmolality 293 mOsm/kg (285-295) 04/20/23 15:56 Calcium 9.1 mg/dL (8.5-10.5) 04/20/23 15:56 Total Bilirubin 0.2 mg/dL (0.15-1.2) 04/20/23 15:56 AST 69 U/L (0-32) H 04/20/23 15:56 ALT 81 U/L (0-33) H 04/20/23 15:56 Alkaline Phosphatase 90 U/L (35-105) 04/20/23 15:56 Total Protein 7.6 g/dL (6.6-8.7) 04/20/23 15:56 Albumin 4.4 g/dL (3.5-5.2) 04/20/23 15:56 Globulin 3.2 g/dL (1.3-4.6) 04/20/23 15:56 Lipase 43 U/L (13-60) 04/20/23 15:56 HCG, Qual Negative (Negative) 04/20/23 15:56 Urine Color Yellow (Yellow) 04/20/23 16:00 Urine Appearance Clear (CLEAR) 04/20/23 16:00 Urine pH 5 (5-7) 04/20/23 16:00 Ur Specific [place] 1.020 (1.005-1.030) 04/20/23 16:00 Urine Protein Neg (Negative) 04/20/23 16:00 Urine Glucose (UA) Norm (Normal) 04/20/23 16:00 Urine Ketones 1+ (Negative) H 04/20/23 16:00 Urine Blood Neg (Negative) 04/20/23 16:00 Urine Nitrate Negative (Negative) 04/20/23 16:00 Urine Bilirubin Neg (Negative) 04/20/23 16:00 Urine Urobilinogen Norm mg/dL (Negative) 04/20/23 16:00 Ur Leukocyte Esterase Negative (Negative) 04/20/23 16:00 All radiology interpretation(s) finalized by discharge Discharge Plan Discharge Patient Disposition: Home Clinical Impression: Enteritis Condition: Stable Prescriptions: New dicyclomine 10 mg capsule 10 mg PO TID Qty: 14 0RF No Action sulfamethoxazole-trimethoprim [Bactrim DS] 800-160 mg tablet 1 tab PO BID 14 Days Qty: 28 0RF Advil 200 mg Tablet 200 mg PO Q6H PRN (Reason: Pain) Tylenol 325 mg Capsule 325 mg PO QID PRN (Reason: Pain) aspirin 81 mg tablet,delayed release (DR/EC) 81 mg PO DAILY Qty: 30 0RF Discharge Orders: Discharge ED (Routine); Ordered 04/20/23 Ordered By: Jose Jose Referrals: Princess Cerda FNP [Primary Care Provider] - Discharge Diet: Advance as tolerated Discharge Activity: Resume usual activity Patient Instructions: Opioid Safety, Pain Management Activity Restrictions/Additional Instructions: Activity Restrictions/Additional Instructions: Thank you for choosing [facility] for your healthcare needs today. Please realize that you were seen in the Emergency Department and that we are providing you with an emergency medical screening exam and this may not be a complete and all inclusive of all the testing and or medical work-up that you may need to determine your ailment or severity of your illness. It is very important that you follow-up as instructed with your Primary care provider or Specialist for additional evaluation and to discuss your medical treatment plan. You may return to the Emergency Department should you have concerns or if your condition changes or worsens in any way. Coding Level of Care Code ED Pastrycook'S Assistant for Sarai [place]
[2023-04-20 16:06] LABS: Basophils # 0.1 10^3/uL (0.0-0.1); Basophils % 0.5 %; Eosinophils # 0.1 10^3/uL (0.0-0.8); Eosinophils % 1.1 %; Lymphocytes # 1.5 10^3/uL (0.8-4.8); Lymphocytes % 14.4 %; Mean Corpuscular HGB Conc 29.7 g/dL (30-55); Mean Corpuscular Hemoglobin 25.6 pg (27-33); Mean Corpuscular Volume 86.3 fl (85-98); Mean Platelet Volume 9.9 fL (7.4-10.4); Monocytes # 0.5 10^3/uL (0.2-0.9); Neutrophils % 78.7 %; Nucleated Red Blood Cells % 0 %; Platelet Count 295 10^3/cmm (157-399); Red Blood Count 3.94 10^6/uL (3.85-5.65); Red Cell Distribution Width 15.4 % (12.1-15.1); White Blood Count 10.28 10^3/uL (3.29-11.43)
[2023-04-20 16:33] LABS: HCG, Serum Qual Negative (Negative)
[2023-04-20 16:38] LABS: Add Urine Microscopic? NO; Charge for UA Resulting for Rev
[2023-04-20 16:41] LABS: Alanine Aminotransferase 81 U/L (0-33); Albumin Level 4.4 g/dL (3.5-5.2); Alkaline Phosphatase 90 U/L (35-105); Anion Gap 16.8 (5-19); Aspartate Amino Transferase 69 U/L (0-32); Blood Urea Nitrogen 15 mg/dL (6-20); Calcium 9.1 mg/dL (8.5-10.5); Carbon Dioxide 22 mmol/L (22-29); Chloride 105 mmol/L (98-107); Globulin 3.2 g/dL (1.3-4.6); Glomerular Filtration Rate 90.9 mL/min (90-130); Glucose 130 mg/dL (65-115); Lipase 43 U/L (13-60); Osmolality Calculated 293 mOsm/kg (285-295); Potassium 3.8 mmol/L (3.5-5.1); Sodium 140 mmol/L (136-145); Total Bilirubin 0.2 mg/dL (0.15-1.2); Total Protein 7.6 g/dL (6.6-8.7)
[2023-04-20 16:44] LABS: Bilirubin Urine Neg (Negative); Blood Urine Neg (Negative); Glucose Urine UA Norm (Normal); Ketones Urine 1+ (Negative); Leukocyte Esterase Urine Negative (Negative); Nitrate Urine Negative (Negative); Protein Urine Neg (Negative); Urine Appearance Clear (CLEAR); Urine Color Yellow (Yellow); Urobilinogen Urine Norm (Negative); pH Urine 5 (5-7)
--- NOTE | 2023-04-20 16:46 | CTR_ITS ---
PROCEDURE INFORMATION: Exam: CT Abdomen And Pelvis With Contrast Exam date and time: 04/20/2023 4:57 PM Age: 43 years old Clinical indication: Abdominal pain; Flank; Right; Additional info: Right flank pain TECHNIQUE: Imaging protocol: Computed tomography of the abdomen and pelvis with contrast. Radiation optimization: All CT scans at this facility use at least one of these dose optimization techniques: automated exposure control; mA and/or kV adjustment per patient size (includes targeted exams where dose is matched to clinical indication); or iterative reconstruction. Contrast material: OMNI 350; Contrast volume: 100 ml; Contrast route: INTRAVENOUS (IV); REPORTING DATA: Count of CT and Cardiac NM exams in prior 12 months: This patient has received 0 known CTs and 0 known cardiac nuclear medicine studies in the 12 months prior to the current study. COMPARISON: CT abdomen pelvis w con* [id number] 01/21/2019 9:36 AM RADIATION DOSE METRICS: Total DLP (mGy-cm): 529.26 FINDINGS: Liver: Hepatic steatosis. Gallbladder and bile ducts: Normal. No calcified stones. No ductal dilation. Pancreas: Normal. No ductal dilation. Spleen: Normal. No splenomegaly. Adrenal glands: Normal. No mass. Kidneys and ureters: Normal. No hydronephrosis. Stomach and bowel: Prominent fluid in the small bowel without dilation may reflect an enteritis. Diverticulosis without diverticulitis. Appendix: No evidence of appendicitis. Intraperitoneal space: Unremarkable. No free air. No significant fluid collection. Vasculature: Unremarkable. No abdominal aortic aneurysm. Lymph nodes: Unremarkable. No enlarged lymph nodes. Urinary bladder: Unremarkable as visualized. Reproductive: Fluid in the uterine cavity, likely related to menstrual status. Bones/joints: Unremarkable. No acute fracture. Soft tissues: Unremarkable. CT/CT abdomen pelvis w con* [id number] IMPRESSION: 1. Prominent fluid in the small bowel without dilation may reflect an enteritis. 2. Fluid in the uterine cavity, likely related to menstrual status. 3. Hepatic steatosis. 4. Diverticulosis without diverticulitis.
[2023-04-20] MEDS: iohexol 350 mg/mL 500 mL Btl (per mL) IV (17:00)
[2023-04-20 18:03] VITALS: PULSE 68; RESP 18; O2SAT 97
== END 2023-04-20 18:04 | disposition home or self-care (01) ==
PROVIDERS: Physician Assistant; Emergency Provider Internal Medicine; PCP Nurse Practitioner Family
DX: K52.9 Noninfective gastroenteritis and colitis, unspecified (principal)
CPT/HCPCS: 36415; 74177; 80053; 81003; 83690; 84703; 85025; 99285; Q9967

== ENCOUNTER → 2023-06-17 09:36 | Outpatient (BNVA) | payer MEDICAID, SELFPAY | PROVIDERS: PCP Nurse Practitioner Family; Visit Provider Obstetrics & Gynecology | DX: N93.9 Abnormal uterine and vaginal bleeding, unspecified (principal); D25.9 Leiomyoma of uterus, unspecified; N88.8 Other specified noninflammatory disorders of cervix uteri; N83.291 Other ovarian cyst, right side | CPT/HCPCS: 76830 ==

== ENCOUNTER → 2023-06-27 09:40 | Outpatient (BNVA) | payer MEDICAID, SELFPAY | PROVIDERS: PCP Nurse Practitioner Family; Visit Provider Obstetrics & Gynecology | DX: N92.1 Excessive and frequent menstruation with irregular cycle (principal); N94.6 Dysmenorrhea, unspecified; D25.1 Intramural leiomyoma of uterus | CPT/HCPCS: 84443 ==

== ENCOUNTER 2024-08-22 17:14 | Emergency (ER) | payer SELFPAY ==
[2024-08-22 17:26] VITALS: BP 117/76; PULSE 80; RESP 16; TEMP 36.5; O2SAT 100
[2024-08-22 18:29] LABS: Basophils % 0.5 %; Eosinophils # 0.1 10^3/uL (0.0-0.8); Eosinophils % 2.5 %; Hematocrit 38.5 % (36-47); Lymphocytes # 1.5 10^3/uL (0.8-4.8); Lymphocytes % 26.6 %; Mean Corpuscular HGB Conc 31.7 g/dL (30-55); Mean Corpuscular Hemoglobin 28.2 pg (27-33); Mean Corpuscular Volume 88.9 fl (85-98); Mean Platelet Volume 10.6 fL (7.4-10.4); Monocytes # 0.6 10^3/uL (0.2-0.9); Monocytes % 10.3 %; Neutrophils # 3.38 10^3/uL (1.8-7.7); Neutrophils % 59.9 %; Nucleated Red Blood Cells % 0 %; Platelet Count 268 10^3/cmm (157-399); Red Blood Count 4.33 10^6/uL (3.85-5.65); Red Cell Distribution Width 13.3 % (12.1-15.1); White Blood Count 5.64 10^3/uL (3.29-11.43)
[2024-08-22 19:02] LABS: Alanine Aminotransferase 21 U/L (0-33); Albumin Level 4.5 g/dL (3.5-5.2); Alkaline Phosphatase 91 U/L (35-105); Aspartate Amino Transferase 20 U/L (0-32); Blood Urea Nitrogen 23 mg/dL (6-20); Calcium 9.5 mg/dL (8.5-10.5); Carbon Dioxide 25 mmol/L (22-29); Chloride 104 mmol/L (98-107); Creatinine Clr Calc Pharmacy 88.1015; Globulin 3.3 g/dL (1.3-4.6); Glomerular Filtration Rate 90.5 mL/min (90-130); Glucose 92 mg/dL (65-115); Osmolality Calculated 295 mOsm/kg (285-295); Sodium 141 mmol/L (136-145); Total Bilirubin 0.2 mg/dL (0.15-1.2); Total Protein 7.8 g/dL (6.6-8.7)
[2024-08-22 19:02] LABS: Bacteria Urine 1+ /hpf; Hyaline Casts Urine 0.81 /lpf; WBC Urine 21-50 /hpf (0-5)
[2024-08-22 19:05] LABS: Bilirubin Urine Neg (Negative); Blood Urine 3+ (Negative); Glucose Urine UA Norm (Normal); Ketones Urine Negative (Negative); Leukocyte Esterase Urine 2+ (Negative); Nitrate Urine Negative (Negative); Protein Urine Neg (Negative); Specific Gravity, Urine 1.025 (1.005-1.030); Urine Appearance Slightly Cloudy (CLEAR); Urine Color Yellow (Yellow); Urobilinogen Urine Norm (Negative); pH Urine 5 (5-7)
== END 2024-08-22 19:24 | disposition left against medical advice (07) ==
PROVIDERS: Emergency Medicine; Emergency Provider Family Medicine; PCP Nurse Practitioner Family
DX: Z53.21 Procedure and treatment not carried out due to patient leaving prior to being seen by health care provider (principal); Z01.89 Encounter for other specified special examinations
CPT/HCPCS: 36415; 80053; 81001; 85025

== ENCOUNTER 2024-08-23 11:46 | Emergency (ER) | payer SELFPAY ==
[2024-08-23 11:56] VITALS: BP 114/69; PULSE 84; RESP 16; TEMP 36.6; O2SAT 100; BMI 27.3
--- NOTE | 2024-08-23 12:03 | CTR_ITS ---
PROCEDURE INFORMATION: Exam: CT Abdomen And Pelvis With Contrast Exam date and time: 08/23/2024 12:34 PM Age: 44 years old Clinical indication: Abdominal pain; Additional info: Abd pain TECHNIQUE: Imaging protocol: Computed tomography of the abdomen and pelvis with contrast. Axial, coronal and sagittal reformatted images were created and reviewed. Radiation optimization: All CT scans at this facility use at least one of these dose optimization techniques: automated exposure control; mA and/or kV adjustment per patient size (includes targeted exams where dose is matched to clinical indication); or iterative reconstruction. Contrast material: OMNI 350; Contrast volume: 100 ml; Contrast route: INTRAVENOUS (IV); COMPARISON: CT abdomen pelvis w con* [id number] 04/20/2023 4:57 PM RADIATION DOSE METRICS: Total DLP (mGy-cm): 494.28 FINDINGS: Liver: Unremarkable. Gallbladder and biliary ducts: No radiodense gallstones. No biliary ductal dilatation. Pancreas: Unremarkable. Spleen: 6 mm low-density splenic lesion, too small to characterize. Adrenal glands: Normal. No mass. Kidneys and ureters: No mass. No radiodense calculi. No hydronephrosis. Stomach and bowel: Mild to moderate gastric distension. No definite bowel wall thickening. No obstruction. No pneumatosis. Moderate amount of retained stool in the colon. Scattered colonic diverticula without evidence of diverticulitis. No obstruction. No bowel wall thickening. No pneumatosis. Appendix: Normal. Intraperitoneal space: Trace nonspecific free pelvic fluid, likely physiologic. No organized fluid collection. No free air. Vasculature: Minimal atherosclerotic disease. No aneurysm or dissection. Lymph nodes: No pathologically enlarged lymph nodes. Urinary bladder: Unremarkable as visualized. Reproductive: Status post hysterectomy. Bones/joints: No acute osseous abnormality. Osteopenia. Mild degenerative changes. Soft tissues: Unremarkable. CT/CT abdomen pelvis w con* [id number] IMPRESSION: 1. No CT evidence of acute intra-abdominal or pelvic pathology. 2. Additional findings, as above.
--- NOTE | 2024-08-23 12:04 | W.ED.ABDPA2 ---
HPI - Abdominal Pain General: Chief Complaint: Abdominal Pain Stated Complaint: low abd pain Time Seen by Provider: 08/23/24 11:52 Source: patient Mode of arrival: ambulatory Limitations: no limitations History of Present Illness: 44-year-old female states she had a hysterectomy 4 weeks ago she states she has been having some lower abdominal pain over the last 4 to 5 days. She denies any fevers denies any worse improving factors states pain is currently a 4 out of 10. Associated Symptoms: Denies chills, diarrhea, dysuria, fever(s), nausea and vomiting Related Data Previous Rx's ?Medication ?Instructions ?Recorded tramadol 50 mg tablet 50 mg PO Q8H PRN pain #14 tabs 08/23/24 Allergies Allergy/AdvReac Type Severity Reaction Status Date / Time hydrocodone (From Lortab) Allergy ITCHING Verified 08/22/24 17:30 morphine AdvReac bp dropped Verified 08/22/24 17:31 Review of Systems Const: Denies: fever(s), chills, body aches or change in appetite ENMT: Denies: throat pain or dental pain Card: Denies: chest pain Resp: Denies: dyspnea GI: Reports: abdominal pain; Denies: nausea, vomiting or diarrhea : Denies: dysuria Musc: Denies: neck pain or back pain Skin/Breast: Denies: rash Neuro: Denies: headache(s) [facility] PFSH: Medical History (Updated 08/23/24 @ 13:29 by Dio Loyd MD) Anxiety Surgical History History of tympanoplasty (~1983) History of kidney surgery (10/13/14) Laparoscopic (robotic) right kidney surgery. Performed at [facility] in [place]. Reports having possible ureteral obstruction and states had lower part of kidney and obstructed ureter removed and ureter reimplanted. Reports had stent for 3 weeks. Family History Family/Other Breast cancer Maternal aunt Hypertension paternal aunt and uncle Hyperlipidemia Multiple family members Grandmother , from ovarian cancer Breast cancer, Onset Age: 60 maternal Ovarian cancer maternal Mother , age 34 from breast cancer Breast cancer, Onset Age: 29 Hypertension Father Diabetes Hypertension Brother Hypertension Grandfather CAD (coronary artery disease) Paternal Social History Smoking and tobacco/nicotine status: current every day tobacco/nicotine user cigarettes Packs smoked per day: 0.5 [ Other cigarette details: started about age 35] Alcohol intake: current Alcohol intake frequency: few times a week Substance/Drug Use: never Physical Exam Const: COMMON NORMALS: no acute distress, patient oriented x3 and healthy appearing HENMT: COMMON NORMALS: normocephalic and atraumatic HEAD & SCALP: normocephalic and atraumatic Eye: COMMON NORMALS: conjunctivae normal CONJUNCTIVA: Yes conjunctivae normal Neck/C-Spine: COMMON NORMALS: full ROM and supple Chest: COMMONS NORMALS: normal inspection of the chest Resp: COMMON NORMALS: normal respiratory effort, No retractions, No use of accessory muscles and clear to auscultation bilaterally AUSCULTATION: clear to auscultation bilaterally Cardio: COMMON NORMALS: regular rate, regular rhythm and No murmurs present (Cardio) RATE: regular rate RHYTHM: regular rhythm GI: COMMON NORMALS: Soft to palpation and no masses PALPATION: Yes Soft to palpation OTHER: mild suprapubic tenderness, inisions cdi Extremity: COMMON NORMALS: normal to inspection and full ROM Neuro: COMMON NORMALS: patient oriented x3, moves all extremities and no focal motor deficits Psych: COMMON NORMALS: mental status grossly normal, Normal thought process present and cooperative THOUGHT PROCESS: Normal thought process present Skin: COMMON NORMALS: no rashes or lesions noted and no wounds GENERAL SKIN EXAM: no rashes or lesions noted Course Vital Signs: Vital signs: Vital Signs Temperature 97.9 F 08/23/24 11:56 Pulse Rate 85 08/23/24 12:21 Respiratory Rate 16 08/23/24 11:56 Blood Pressure 114/69 08/23/24 12:21 Pulse Oximetry 100 08/23/24 12:21 Oxygen Delivery Me thod Room Air 08/23/24 11:56 MDM - Abdominal Pain Medical Decision Making Patient presents here with abdominal pain likely postop pain CT shows no acute findings blood works normal she is well-appearing here she stable for discharge follow-up PCP return if worsening. Medical Records I reviewed the patient's medical records. Lab Data I reviewed the patient's lab results. 08/23/24 12:06 04/13/25 12:06 Labs/Radiology: Radiology Impressions Abdomen/Pelvis CT 08/23/24 12:[address]: [address] evidence of acute intra-abdominal or pelvic pathology. 2. Additional findings, as above. Laboratory Results WBC 6.30 10^3/uL (3.29-11.43) 08/23/24 12:06 RBC 4.60 10^6/uL (3.85-5.65) 08/23/24 12:06 Hgb 12.90 g/dL (11.27-16.99) 08/23/24 12:06 Hct 40.7 % (36-47) 08/23/24 12:06 MCV 88.5 fl (85-98) 08/23/24 12:06 MCH 28.0 pg (27-33) 08/23/24 12:06 MCHC 31.7 g/dL (30-55) 08/23/24 12:06 RDW 13.5 % (12.1-15.1) 08/23/24 12:06 Plt Count 284 10^3/cmm (157-399) 08/23/24 12:06 MPV 10.0 fL (7.4-10.4) 08/23/24 12:06 Neut % (Auto) 67.8 % 08/23/24 12:06 Lymph % (Auto) 19.5 % 08/23/24 12:06 [place] % (Auto) 10.0 % 08/23/24 12:06 Eos % (Auto) 1.9 % 08/23/24 12:06 Baso % (Auto) 0.6 % 08/23/24 12:06 Neut # (Auto) 4.27 10^3/uL (1.8-7.7) 08/23/24 12:06 Lymph # (Auto) 1.2 10^3/uL (0.8-4.8) 08/23/24 12:06 [place] # (Auto) 0.6 10^3/uL (0.2-0.9) 08/23/24 12:06 Eos # (Auto) 0.1 10^3/uL (0.0-0.8) 08/23/24 12:06 Baso # (Auto) 0.0 10^3/uL (0.0-0.1) 08/23/24 12:06 Nucleated RBC % (auto) 0 % 08/23/24 12:06 Nucleated RBCs # 0.0 /100WBC 08/23/24 12:06 Sodium 143 mmol/L (136-145) 08/23/24 12:06 Potassium 4.2 mmol/L (3.5-5.1) 08/23/24 12:06 Chloride 104 mmol/L (98-107) 08/23/24 12:06 Carbon Dioxide 26 mmol/L (22-29) 08/23/24 12:06 Anion Gap 17.2 (5-19) 08/23/24 12:06 BUN 16 mg/dL (6-20) 08/23/24 12:06 Creatinine 0.8 mg/dL (0.5-0.9) 08/23/24 12:06 GFR Calculation 77.6 mL/min (90-130) L 08/23/24 12:06 Glucose 64 mg/dL (65-115) L 08/23/24 12:06 Calculated Osmolality 295 mOsm/kg (285-295) 08/23/24 12:06 Calcium 9.7 mg/dL (8.5-10.5) 08/23/24 12:06 Total Bilirubin 0.2 mg/dL (0.15-1.2) 08/23/24 12:06 AST 23 U/L (0-32) 08/23/24 12:06 ALT 24 U/L (0-33) 08/23/24 12:06 Alkaline Phosphatase 92 U/L (35-105) 08/23/24 12:06 Total Protein 8.1 g/dL (6.6-8.7) 08/23/24 12:06 Albumin 4.6 g/dL (3.5-5.2) 08/23/24 12:06 Globulin 3.5 g/dL (1.3-4.6) 08/23/24 12:06 Lipase 36 U/L (13-60) 08/23/24 12:06 Urine Color Yellow (Yellow) 08/23/24 13:03 Urine Appearance Clear (CLEAR) 08/23/24 13:03 Urine pH 8 (5-7) A 08/23/24 13:03 Ur Specific [place] 1.010 (1.005-1.030) 08/23/24 13:03 Urine Protein Neg (Negative) 08/23/24 13:03 Urine Glucose (UA) Norm (Normal) 08/23/24 13:03 Urine Ketones Negative (Negative) 08/23/24 13:03 Urine Blood Neg (Negative) 08/23/24 13:03 Urine Nitrate Negative (Negative) 08/23/24 13:03 Urine Bilirubin Neg (Negative) 08/23/24 13:03 Urine Urobilinogen Neg mg/dL (Negative) 08/23/24 13:03 Ur Leukocyte Esterase Negative (Negative) 08/23/24 13:03 Urine RBC 0-2 /hpf (0-2) 08/23/24 13:03 Urine WBC 0-5 /hpf (0-5) 08/23/24 13:03 Ur Squamous Epith Cells 0-5 /hpf (0-5) 08/23/24 13:03 Amorphous Sediment Not Reportable 08/23/24 13:03 Urine Bacteria None seen /hpf (NONE) 08/23/24 13:03 Hyaline Casts 2.46 /lpf 08/23/24 13:03 All radiology interpretation(s) finalized by discharge Discharge Plan Discharge Patient Disposition: Home Clinical Impression: Abdominal pain Condition: Stable Prescriptions: New tramadol 50 mg tablet 50 mg PO Q8H PRN (Reason: pain) Qty: 14 0RF Discharge Orders: Discharge ED (Routine); Ordered 08/23/24 Ordered By: Dio Loyd Referrals: Cerda,Princess, AD TERMINAL MAKEUP OPERATOR [Primary Care Provider] - 4-7 days Discharge Diet: Advance as tolerated Discharge Activity: Resume usual activity Patient Instructions: Abdominal Pain (ED) Print Language: Greek Coding Level of Care Code ED Wide Area Network Administrator for Sarai Holbrook
[2024-08-23 12:11] LABS: Basophils % 0.6 %; Eosinophils # 0.1 10^3/uL (0.0-0.8); Eosinophils % 1.9 %; Hematocrit 40.7 % (36-47); Lymphocytes # 1.2 10^3/uL (0.8-4.8); Lymphocytes % 19.5 %; Mean Corpuscular HGB Conc 31.7 g/dL (30-55); Mean Corpuscular Volume 88.5 fl (85-98); Monocytes # 0.6 10^3/uL (0.2-0.9); Neutrophils # 4.27 10^3/uL (1.8-7.7); Neutrophils % 67.8 %; Nucleated Red Blood Cells % 0 %; Platelet Count 284 10^3/cmm (157-399); Red Cell Distribution Width 13.5 % (12.1-15.1)
[2024-08-23] MEDS: ondansetron 2 mg/ML SDV 2 mL 4 MG IVP (12:17)
[2024-08-23] MEDS: HYDROmorphone 0.5 MG/0.5 ML INJ IVP (12:19)
[2024-08-23 12:21] VITALS: BP 114/69; PULSE 85; O2SAT 100
[2024-08-23 12:27] LABS: Alanine Aminotransferase 24 U/L (0-33); Albumin Level 4.6 g/dL (3.5-5.2); Alkaline Phosphatase 92 U/L (35-105); Anion Gap 17.2 (5-19); Aspartate Amino Transferase 23 U/L (0-32); Blood Urea Nitrogen 16 mg/dL (6-20); Calcium 9.7 mg/dL (8.5-10.5); Carbon Dioxide 26 mmol/L (22-29); Chloride 104 mmol/L (98-107); Creatinine Clr Calc Pharmacy 77.0888; Globulin 3.5 g/dL (1.3-4.6); Glomerular Filtration Rate 77.6 mL/min (90-130); Glucose 64 mg/dL (65-115); Lipase 36 U/L (13-60); Osmolality Calculated 295 mOsm/kg (285-295); Potassium 4.2 mmol/L (3.5-5.1); Sodium 143 mmol/L (136-145); Total Bilirubin 0.2 mg/dL (0.15-1.2); Total Protein 8.1 g/dL (6.6-8.7)
[2024-08-23 13:05] LABS: Add Urine Microscopic? NO
[2024-08-23 13:09] LABS: Bilirubin Urine Neg (Negative); Blood Urine Neg (Negative); Glucose Urine UA Norm (Normal); Ketones Urine Negative (Negative); Leukocyte Esterase Urine Negative (Negative); Nitrate Urine Negative (Negative); Protein Urine Neg (Negative); Urine Appearance Clear (CLEAR); Urine Color Yellow (Yellow); Urobilinogen Urine Neg (Negative); pH Urine 8 (5-7)
[2024-08-23 13:10] LABS: Charge for UA Resulting for Rev
[2024-08-23 13:11] LABS: Bacteria Urine None Seen /hpf; Hyaline Casts Urine 2.46 /lpf; RBC Urine 0-2 /hpf (0-2); Squamous Epithelial Cell Urine 0-5 /hpf (0-5); WBC Urine 0-5 /hpf (0-5)
--- NOTE | 2024-08-23 13:21 | PC.NURSE ---
this nurse assumed pt care from Jeny GARRETT at 1305.
[2024-08-23 13:39] VITALS: BP 104/55; PULSE 77; RESP 14; O2SAT 99
== END 2024-08-23 13:38 | disposition home or self-care (01) ==
PROVIDERS: Emergency Provider Emergency Medicine; PCP Nurse Practitioner Family
DX: R10.30 Lower abdominal pain, unspecified (principal); F17.210 Nicotine dependence, cigarettes, uncomplicated
CPT/HCPCS: 74177; 80053; 81003; 83690; 85025; 96374; 96375; 99285; J1171; J2405

== ENCOUNTER → 2024-11-09 10:18 | Outpatient (BNVA) | payer MEDICAID, SELFPAY | PROVIDERS: PCP Nurse Practitioner; Visit Provider Nurse Practitioner | DX: Z13.6 Encounter for screening for cardiovascular disorders (principal); F41.8 Other specified anxiety disorders; E55.9 Vitamin D deficiency, unspecified; M19.042 Primary osteoarthritis, left hand; M19.041 Primary osteoarthritis, right hand | CPT/HCPCS: 73130; 80053; 80061; 82306; 82607; 84443; 85025; 85651; 86140 ==

== ENCOUNTER → 2024-12-29 09:30 | Outpatient (BNVA) | payer MEDICAID, SELFPAY | PROVIDERS: PCP Nurse Practitioner; Visit Provider Nurse Practitioner | DX: M25.551 Pain in right hip (principal); M25.552 Pain in left hip | CPT/HCPCS: 73502 ==

== ENCOUNTER 2025-01-19 10:04 | Outpatient (CLI) | payer MEDICAID, SELFPAY ==
--- NOTE | 2025-01-19 10:12 | US_ITS ---
WS: [id number] DIAGNOSTIC BILATERAL DIGITAL BREAST TOMOSYNTHESIS MAMMOGRAPHY WITH CAD LEFT breast ultrasound, limited HISTORY: N64.4 - Mastodynia COMPARISON: 08/25/2012, 07/10/2011 TECHNIQUE: Bilateral craniocaudad, mediolateral oblique, and mediolateral views are submitted with tomosynthesis and SM. Spot compression LEFT MLO. Computer aided detection utilized. Breast composition: There are scattered areas of fibroglandular density. Markers are placed towards the axillary tail and axilla of the LEFT breast. Very deep against the chest wall is an incompletely visualized lymph node of increased density. Size of this lymph node does not appear enlarged but the entire lymph node is not included. Bilateral scattered breast calcifications. No distortion within either breast. LEFT breast ultrasound, limited. No ultrasound abnormality noted in the LEFT axilla in the area of pain. There are benign lymph nodes noted. These lymph nodes have normal fatty kayce and thin cortex. US/US breast LT limited* [id number] IMPRESSION: BI-RADS: 2 - Benign. FOLLOW UP: 1 Year Follow-up No ultrasound or mammographic abnormality LEFT breast in the area of pain.
--- NOTE | 2025-01-19 10:15 | MM_ITS ---
WS: [id number] DIAGNOSTIC BILATERAL DIGITAL BREAST TOMOSYNTHESIS MAMMOGRAPHY WITH CAD LEFT breast ultrasound, limited HISTORY: N64.4 - Mastodynia COMPARISON: 08/25/2012, 07/10/2011 TECHNIQUE: Bilateral craniocaudad, mediolateral oblique, and mediolateral views are submitted with tomosynthesis and SM. Spot compression LEFT MLO. Computer aided detection utilized. Breast composition: There are scattered areas of fibroglandular density. Markers are placed towards the axillary tail and axilla of the LEFT breast. Very deep against the chest wall is an incompletely visualized lymph node of increased density. Size of this lymph node does not appear enlarged but the entire lymph node is not included. Bilateral scattered breast calcifications. No distortion within either breast. LEFT breast ultrasound, limited. No ultrasound abnormality noted in the LEFT axilla in the area of pain. There are benign lymph nodes noted. These lymph nodes have normal fatty kayce and thin cortex. MM/MM diag BI tomosynthesis [id number] IMPRESSION: BI-RADS: 2 - Benign. FOLLOW UP: 1 Year Follow-up No ultrasound or mammographic abnormality LEFT breast in the area of pain.
== END 2025-01-19 10:05 | disposition home or self-care (01) ==
LOC: RAD 10:05
PROVIDERS: PCP Nurse Practitioner; Visit Provider Nurse Practitioner
DX: N64.4 Mastodynia (principal); R92.1 Mammographic calcification found on diagnostic imaging of breast; D36.0 Benign neoplasm of lymph nodes; R93.89 Abnormal findings on diagnostic imaging of other specified body structures
CPT/HCPCS: 76642; 77062; G0279